=== PATIENT | male | born 1975 | race Two or more races ===

== ENCOUNTER 2018-05-22 11:19 | Outpatient (CLI) | payer OTHER | END 2018-05-22 11:25 | disposition home or self-care (01) | LOC: RAD 11:19 | DX: M25.552 Pain in left hip (principal); M25.551 Pain in right hip; M54.5 Low back pain ==

== ENCOUNTER 2019-05-03 16:19 | Outpatient (CLI) | payer OTHER | END 2019-05-03 16:24 | disposition home or self-care (01) | LOC: LAB 16:19 | DX: R10.84 Generalized abdominal pain (principal) ==

== ENCOUNTER → 2019-05-04 | Outpatient (CLI) | payer OTHER | END | disposition home or self-care (01) | LOC: SONOGRAMA 08:18 → MAMO-SONO 08:45 | DX: R10.84 Generalized abdominal pain (principal) ==

== ENCOUNTER 2021-07-08 10:46 | Outpatient (CLI) | payer OTHER | END 2021-07-08 10:49 | disposition home or self-care (01) | LOC: RAD 10:46 | PROVIDERS: ATTEND Family Medicine | DX: M25.541 Pain in joints of right hand (principal) ==

== ENCOUNTER 2022-08-11 14:50 | Outpatient (CLI) | payer OTHER | END 2022-08-11 14:57 | disposition home or self-care (01) | LOC: RAD 14:50 | PROVIDERS: ATTEND Family Medicine | DX: M77.40 Metatarsalgia, unspecified foot (principal) ==

== ENCOUNTER 2022-08-12 11:19 | Outpatient (CLI) | payer OTHER | END 2022-08-12 11:27 | disposition home or self-care (01) | LOC: SONOGRAMA 11:19 | PROVIDERS: ATTEND Family Medicine | DX: M25.519 Pain in unspecified shoulder (principal) ==